=== PATIENT | male | born 1980 | race Caucasian/White ===

== ENCOUNTER 2019-12-24 16:02 | Emergency (ER) | payer OTHER ==
[~2019-12-24] VITALS: Ht 182.9 cm; Wt 97.5 kg
[~2019-12-24 16:02] MED LIST: ACYC800T5; CLEVAG; DOXY100C2; GLIP10TA21; IBUP-1503; LIP20; LISI40TA4; METF-379; NAPR-690
[2019-12-24 16:24] VITALS: BP_SYST 171
--- NOTE | 2019-12-24 16:25 | NUR ---
plPatient to ER bed h2 for evaluation. Side rails up. Report given to Norbert CLAYTON.
--- NOTE | 2019-12-24 16:26 | NUR ---
ER Dr. Gore at bedside examining patient.
[2019-12-24] MEDS ORDERED: LIDOCAINE/EPI 1% 1:100000 20 ML VIAL INJ ONE (16:30)
--- NOTE | 2019-12-24 16:30 | NUR ---
Dr. Gore at bedside for laceration repair.
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
--- NOTE | 2019-12-24 16:38 | NUR ---
Patient has a 4 cm laceration to anterior neck. Dr. Gore applied sutures using sterile technique. Edges well approximated. Site cleansed with normal saline. Nonadherent dressing applied to site. No bleeding noted. Pt tolerated well.
--- NOTE | 2019-12-24 16:47 | NUR ---
Patient given written and verbal discharge instructions and verbalizes understanding. ER MD Gore discussed with patient the results and treatment provided. Patient in stable condition. ID arm band removed. No Rx given. Patient educated on pain management and to follow up with PMD. Pain Scale 0. Opportunity for questions provided and answered. Medication side effect fact sheet provided.
== END 2019-12-24 16:47 | disposition home or self-care (01) ==
LOC: SED 16:02
DX: S11.91XA Laceration without foreign body of unspecified part of neck, initial encounter (principal); K21.9 Gastro-esophageal reflux disease without esophagitis; I10 Essential (primary) hypertension; E11.9 Type 2 diabetes mellitus without complications; E78.00 Pure hypercholesterolemia, unspecified; F11.10 Opioid abuse, uncomplicated; F15.10 Other stimulant abuse, uncomplicated; Z79.899 Other long term (current) drug therapy; W26.8XXA Contact with other sharp object(s), not elsewhere classified, initial encounter; Y93.89 Activity, other specified; Y92.89 Other specified places as the place of occurrence of the external cause; Y99.8 Other external cause status
CPT/HCPCS: 99283